=== PATIENT | male | born 1995 | race Caucasian/White ===

== ENCOUNTER 2016-11-07 02:20 | Emergency (ER) | payer OTHER ==
[~2016-11-07] VITALS: Ht 167.6 cm; Wt 80.1 kg
[~2016-11-07 02:20] MED LIST: NZR200 PO; [UNRECOGNIZED DRUG - CODE] TOP
[2016-11-07 02:23] VITALS: TEMP 36.7; Ht 167.6 cm; Wt 80.1 kg
[2016-11-07] MEDS ORDERED: ONDANSETRON INJ 2 MG/ML 2 ML VIAL IV STA (02:35)
[2016-11-07] MEDS ORDERED: SODIUM CHLORIDE 0.9% 1000ML 1,000 ML IV ONE ×2 (02:45)
[2016-11-07 03:07] LABS: BASO % 0.4 %; BASO ABS # 0.03 K/uL (0-0.2); COMPLETE YES; EOS % 2.3 %; HEMATOCRIT 43.5 % (42-52); IG% 0.1 %; LYMPH % 31.1 %; LYMPH ABS # 2.46 K/uL (1.2-3.4); MEAN CELL VOLUME 83.2 fL (80-100); MEAN CORPUSCULAR HEMOGLOBIN 29.8 pg (25-34); MEAN CORPUSCULAR HGB CONC 35.9 g/dl (32-36); MEAN PLATELET VOLUME 10.5 fL (7.4-10.4); MONO % 9.6 %; NEUT % 56.5 %; PLATELET COUNT 198 K/uL (130-400); RED BLOOD COUNT 5.23 M/uL (4.7-6.1); WHITE BLOOD COUNT 7.92 K/uL (4.8-10.8)
[2016-11-07 03:27] LABS: BUN/CREATININE RATIO 9.7 (10-20); CALCIUM 8.9 mg/dl (8.5-10.1); CREATININE 1.2 mg/dl (0.60-1.40); POTASSIUM 3.4 mmol/L (3.5-5.1)
[2016-11-07 03:29] LABS: ALB/GLOB RATIO 1.5 (0.9-2)
[2016-11-07 04:37] LABS: URINE APPEARANCE CLEAR (CLEAR); URINE BILIRUBIN NEG (NEG); URINE COLOR YELLOW; URINE NITRITE NEG (NEG); URINE PH 6.5 (4.5-7.5); UROBILINOGEN NEG (NEG); ZZUR CULT IF INDIC CLEAN CATCH NO
[2016-11-07 04:48] LABS: MANUAL MICROSCOPIC REQUIRED? NO; REVIEW REQ? NO
[2016-11-07 04:58] LABS: BENZODIAZEPINE, URINE NEG (NEG); COCAINE,URINE NEG (NEG); PHENCYCLIDINE, URINE NEG (NEG)
[2016-11-07] MEDS ORDERED: KETO2SHA TOP (05:09)
[2016-11-07] MEDS ORDERED: ONDANSETRON HOME PACK 4MG OD TAB PO ONE (05:15)
[2016-11-07 05:24] VITALS: BP 135/60; PULSE 75; O2SAT 99
--- NOTE | 2016-11-07 06:14 | EMERGENCY ROOM VISIT NOTE ---
History First contact with patient: 02:26 Chief Complaint: VOMITING Stated Complaint: THROWING UP,HEADACHE,WEAK Nursing Triage Summary: Vomiting, headache, and weakness since 1529. Hx migraines History of Present Illness The patient is a 21 year old male who presents to the Emergency Room with complaints of nausea and vomiting for the past 12 hours. The patient has a history of migraine headaches, and has developed a mild headache as well. This is not the worst headache of his life. The patient has not had or chills. He has been visiting in the hospital as he has had ill family members with similar symptoms. He rates his current discomfort a 5/10. He has not taken anything [id number] for his discomfort. Review of Systems More than 10 systems were reviewed and otherwise negative with the exception of history of present illness. Past Medical/Surgical History Medical Problems: (1) Migraine (2) Syncope Family History Patient reports no known family medical history. Social History Smoking Status: Never Smoker Alcohol Use: none Drug Use: none Marital Status: single Housing Status: lives with family Occupation Status: employed, student Current/Historical Medications Scheduled Ketoconazole (Topical) (Ketoconazole), 1 APPLN TOP DAILY Allergies Coded Allergies: No Known Allergies (Unverified , NONE, 01/14/16) Physical Exam Vital Signs Date Time Temp Pulse Resp B/P Pulse Ox O2 Delivery O2 Flow Rate FiO2 11/07/16 05:24 75 18 135/60 99 11/07/16 04:31 79 18 141/55 99 Room Air 11/07/16 02:23 36.7 70 18 127/77 98 Room Air Pain Rating (0-10): 4.0 Physical Exam VITALS: Vitals are noted on the nurse's note and reviewed by myself. Vital signs stable. GENERAL: Well-developed, well-nourished, white male, who is in no acute distress and resting comfortably. Patient is cooperative with the examination. HEAD: Normocephalic atraumatic. EARS: External ear normal. External auditory canals clear, tympanic membranes pearly nickerson without erythema or effusion bilaterally. EYES: Pupils equal round and reactive to light and accommodation. Conjunctivae without injection, sclerae without icterus. Extraocular movements intact. NOSE: Patent, turbinates without inflammation or discharge. MOUTH: Mucous membranes moist. Tonsils are not enlarged. Pharynx without erythema, blood, or exudate. Uvula midline. Airway patent. NECK: Supple without nuchal rigidity. No lymphadenopathy. No thyromegaly. Cervical spine is nontender. HEART: Regular rate and rhythm without murmurs gallops or rubs. LUNGS: Clear to auscultation bilaterally without wheezes, rales or rhonchi. No retractions or accessory muscle use. ABDOMEN: Positive normal bowel sounds x 4. Soft, nontender, without masses or organomegaly. No guarding or rebound tenderness. SKIN: Several hyperpigmented papules and macules are noted primarily along the right side shoulder and right sided back consistent with tinea versicolor Medical Decision & Procedures Laboratory Results 11/07/16 02:40 Red Blood Count 5.23, Mean Corpuscular Volume 83.2, Mean Corpuscular Hemoglobin 29.8, Mean Corpuscular Hemoglobin Concent 35.9, Mean Platelet Volume 10.5, Neutrophils (%) (Auto) 56.5, Lymphocytes (%) (Auto) 31.1, Monocytes (%) (Auto) 9.6, Eosinophils (%) (Auto) 2.3, Basophils (%) (Auto) 0.4, Neutrophils # (Auto) 4.48, Lymphocytes # (Auto) 2.46, Monocytes # (Auto) 0.76, Eosinophils # (Auto) 0.18, Basophils # (Auto) 0.03 11/07/16 02:40 Test 11/07/16 02:40 11/07/16 04:28 White Blood Count 7.92 K/uL (4.8-10.8) Red Blood Count 5.23 M/uL (4.7-6.1) Hemoglobin 15.6 g/dL (14.0-18.0) Hematocrit 43.5 % (42-52) Mean Corpuscular Volume 83.2 fL (80-100) Mean Corpuscular Hemoglobin 29.8 pg (25-34) Mean Corpuscular Hemoglobin Concent 35.9 g/dl (32-36) Platelet Count 198 K/uL (130-400) Mean Platelet Volume 10.5 fL (7.4-10.4) Neutrophils (%) (Auto) 56.5 % Lymphocytes (%) (Auto) 31.1 % Monocytes (%) (Auto) 9.6 % Eosinophils (%) (Auto) 2.3 % Basophils (%) (Auto) 0.4 % Neutrophils # (Auto) 4.48 K/uL (1.4-6.5) Lymphocytes # (Auto) 2.46 K/uL (1.2-3.4) Monocytes # (Auto) 0.76 K/uL (0.11-0.59) Eosinophils # (Auto) 0.18 K/uL (0-0.5) Basophils # (Auto) 0.03 K/uL (0-0.2) RDW Standard Deviation 37.4 fL (36.4-46.3) RDW Coefficient of Variation 12.3 % (11.5-14.5) Immature Granulocyte % (Auto) 0.1 % Immature Granulocyte # (Auto) 0.01 K/uL (0.00-0.02) Anion Gap 9.0 mmol/L (3-11) Est Creatinine Clear Calc Drug Dose 97.6 ml/min Estimated GFR () 100.3 Estimated GFR (Non- 86.5 BUN/Creatinine Ratio 9.7 (10-20) Calcium Level 8.9 mg/dl (8.5-10.1) Magnesium Level 2.0 mg/dl (1.8-2.4) Total Bilirubin 0.6 mg/dl (0.2-1) Aspartate Amino Transf (AST/SGOT) 24 U/L (15-37) Alanine Aminotransferase (ALT/SGPT) 50 U/L (12-78) Alkaline Phosphatase 66 U/L (45-117) Total Protein 7.2 gm/dl (6.4-8.2) Albumin 4.3 gm/dl (3.4-5.0) Globulin 2.9 gm/dl (2.5-4.0) Albumin/Globulin Ratio 1.5 (0.9-2) Lipase 88 U/L (73-393) Urine Color YELLOW Urine Appearance CLEAR (CLEAR) Urine pH 6.5 (4.5-7.5) Urine Specific [place] 1.010 (1.000-1.030) Urine Protein NEG (NEG) Urine Glucose (UA) NEG (NEG) Urine Ketones 1+ (NEG) Urine Occult Blood NEG (NEG) Urine Nitrite NEG (NEG) Urine Bilirubin NEG (NEG) Urine Urobilinogen NEG (NEG) Urine Leukocyte Esterase NEG (NEG) Urine Opiates Screen NEG (NEG) Urine Methadone, Qualitative NEG (NEG) Urine Barbiturates NEG (NEG) Urine Phencyclidine (PCP) Level NEG (NEG) Ur Amphetamine/Methamphetamine NEG (NEG) MDMA (Ecstasy) Screen NEG (NEG) Urine Benzodiazepines Screen NEG (NEG) Urine Cocaine Metabolite NEG (NEG) Urine Marijuana (THC) NEG (NEG) Medications Administered Medications (Trade) Dose Ordered Sig/R[place]wn Route Start Time Stop Time Status Last Admin Dose Admin Sodium Chloride 1,000 ml @ 999 mls/hr Q1H1M ONCE IV 11/07/16 02:45 11/07/16 03:45 DC 11/07/16 02:48 999 MLS/HR Sodium Chloride (Nss 1000ml) 1,000 ml @ 999 mls/hr Q1H1M ONCE IV 11/07/16 02:45 11/07/16 03:45 DC 11/07/16 02:45 999 MLS/HR Ondansetron HCl (Zofran Inj) 8 mg NOW STAT IV 11/07/16 02:35 11/07/16 02:36 DC 11/07/16 02:49 8 MG ED Course Physical exam and history were performed. Nursing notes and EMR were reviewed. Patient appears to have nausea and vomiting for the past 12 hours. He also has developed a very mild headache. IV access was established and labs were obtained. The patient was hydrated with 2 L normal saline. He was given 8 mg IV Zofran here in the department. The patient's blood work is as above and was reviewed. She does not have a significantly elevated white cell count, anemia, bandemia, or gross electrolyte imbalance. Lipase and transaminases are nondiagnostic. The urine is without evidence of infection or significant ketonuria. Overall the patient had significant improvement of his symptoms after hydration and Zofran. His vital signs are stable, and recurrent emesis here in the department. I discussed options of care with the patient, and he does feel well for discharge home. This does appear reasonable. I will provide the patient a short course of Zofran for his symptoms. He will need to follow with his primary care physician this week for further care and management. The patient did request something for his tinea versicolor, and I will provide, sulfa shampoo. The patient was pleased with plan of care and rated his discomfort a 0/10 at the time of departure. The chart was completed utilizing [employer] Speech Voice Recognition Software. Grammatical errors, random word insertions, pronoun errors, and incomplete sentences are an occasional consequence of this system due to software limitations, ambient noise, and hardware issues. Any formal questions or concerns about the content, text, or information contained within the body of this dictation should be directly addressed to the provider for clarification. . Medical Decision Differential diagnosis: Etiologies such as gastroenteritis, food borne illness, infections, appendicitis , diverticulitis, inflammatory bowel disease, obstruction, GI bleed, biliary pathology, as well as others were entertained. Impression Primary Impression: Nausea and vomiting Additional Impression: Tinea versicolor Departure Information Dispostion Home / Self-Care Condition FAIR Prescriptions Ketoconazole (Topical) (KETOCONAZOLE) 2 % Sha 1 APPLN TOP DAILY for 3 Days, #120 ML 0 Refills Apply once daily for 5 minutes in the shower. Repeat for Three consecutive days. Prov: Power Mariano PA-C 11/07/16 Forms HOME CARE DOCUMENTATION FORM, IMPORTANT VISIT INFORMATION Patient Instructions A Signature Page, [facility] Additional Instructions You were seen and evaluated today on an emergency basis only. This is not a substitute for, or an effort to provide, complete comprehensive medical care. It is not possible to recognize and treat all injuries or illnesses in a single emergency department visit. For this reason it is recommended that you followup with your primary care physician this week for ongoing care and evaluation. Zofran 1 tablet every 6 hrs as needed for nausea. Apply Ketoconazole shampoo as directed for your rash. Apply this for 5 minutes in the shower, then wash off. Repeat this for 3 consecutive days. You are welcome to return to the emergency department anytime with new, worsening, or concerning symptoms.
== END 2016-11-07 05:18 | disposition home or self-care (01) ==
LOC: C.EDB 02:21
DX: R11.2 Nausea with vomiting, unspecified (principal); B36.0 Pityriasis versicolor